=== PATIENT | female | born 1985 | race Caucasian/White ===

== ENCOUNTER → 2016-08-04 | Outpatient (CLI) | payer BC | END | disposition home or self-care (01) | LOC: C.PAPS 10:23 | PROVIDERS: ATTEND Obstetrics & Gynecology | DX: Z01.419 Encounter for gynecological examination (general) (routine) without abnormal findings (principal); Z87.42 Personal history of other diseases of the female genital tract ==

== ENCOUNTER → 2017-06-12 | Outpatient (CLI) | payer OTHER ==
--- NOTE | 2017-06-12 08:59 | DIAGNOSTIC IMAGING REPORT ---
L-SPINE MIN 4 VIEWS ROUTINE CLINICAL HISTORY: 32 years-old Female presenting with SCIATICA OF LEFT SIDE. TECHNIQUE: Frontal, bilateral oblique, lateral, and coned in lateral views of the lumbar spine were obtained. COMPARISON: Correlation made to CT from 06/11/2015. FINDINGS: Mild levocurvature of the lumbar spine. Normal lumbar lordosis. Vertebral body heights and alignment normal. Intervertebral disc spaces preserved. No degenerative change. No radiographic evidence of a compression deformity or subluxation is. No gross evidence of osseous neural foraminal narrowing. No pars defect. IMPRESSION: Normal lumbar spine. Electronically signed by: Lane Taylor M.D. 06/12/2017 8:57 AM Dictated Date/Time: 06/12/2017 8:56 AM
== END | disposition home or self-care (01) ==
LOC: C.RAD1850 08:36
PROVIDERS: ATTEND Physician Assistant
DX: M54.32 Sciatica, left side (principal)